=== PATIENT | female | born 1985 | race Caucasian/White ===

== ENCOUNTER 2016-12-10 15:15 | Emergency (ER) | payer MEDICAID ==
[2016-12-10] MEDS ORDERED: DUONEB INH ONE ×2 (16:32)
== END 2016-12-10 17:20 | disposition home or self-care (01) ==
LOC: FASTR 15:15
DX: J01.00 Acute maxillary sinusitis, unspecified (principal); J01.20 Acute ethmoidal sinusitis, unspecified; J01.10 Acute frontal sinusitis, unspecified; F17.210 Nicotine dependence, cigarettes, uncomplicated
CPT/HCPCS: 71020; 87804; 87880; 94640